=== PATIENT | female | born 1955 | race Caucasian/White ===

== ENCOUNTER → 2016-12-25 | Outpatient (CLI) | payer BC ==
[~2016-12-25] MED LIST: NO HOME MEDICATIONS
== END ==
LOC: MC.RAD 16:00
DX: Z12.31 Encounter for screening mammogram for malignant neoplasm of breast (principal)

== ENCOUNTER 2017-09-05 14:29 | Emergency (ER) | payer BC ==
[~2017-09-05] VITALS: Ht 160 cm; Wt 46.4 kg
[2017-09-05 14:35] VITALS: TEMP 100.1
[2017-09-05] MEDS ORDERED: THERAFLU EXPRE1 EAC1 PO (15:11)
[2017-09-05] MEDS ORDERED: ADVIL200 MG PO (15:11)
[2017-09-05 15:35] LABS: BASO % 0.3 % (0.0-2.0); GRAN % 77.2 % (42.2-75.2); HEMATOCRIT 39.4 % (37.0-47.0); HEMOGLOBIN 13.2 g/dl (12.5-16.0); LYMPH # 0.5 (1.2-3.4); LYMPH % 7.1 % (20.0-51.0); MEAN CELL VOLUME 95 fl (80.0-100.0); MEAN CORPUSCULAR HEMOGLOBIN 32 pg (27.0-31.0); MEAN CORPUSCULAR HGB CONC 34 g/dl (33.0-37.0); MEAN PLATELET VOLUME 10.7 fl (7.4-10.4); MONO % 14.9 % (1.7-9.3); PLATELET COUNT 177 K/mm3 (130-400); RED BLOOD COUNT 4.17 M/mm3 (4.10-5.30); REDCELL DISTRIBUTION WIDTH-CV 12.1 % (11.5-14.5)
[2017-09-05 15:45] LABS: ALBUMIN 4.4 gm/dL (3.5-5.0); BILIRUBIN,TOTAL 0.4 mg/dL (0.0-1.0); CALCIUM 8.6 mg/dL (8.4-10.2); CREATININE, serum 0.89 mg/dL (0.52-1.25); POTASSIUM 4.3 mmol/L (3.4-5.0); TOTAL PROTEIN 7.3 gm/dL (6.4-8.2)
[2017-09-05 15:51] LABS: INFLUENZA A NEGATIVE; INFLUENZA B NEGATIVE
[2017-09-05 16:26] VITALS: BP 115/69; PULSE 78
== END 2017-09-05 16:33 | disposition home or self-care (01) ==
LOC: COL.ER 14:29
PROVIDERS: Emergency Medicine
DX: J11.1 Influenza due to unidentified influenza virus with other respiratory manifestations (principal); R55 Syncope and collapse
CPT/HCPCS: J7030

== ENCOUNTER → 2018-01-20 | Outpatient (CLI) | payer BC ==
[~2018-01-20] MED LIST changes: +ADVIL200 MG PO; +THERAFLU EXPRE1 EAC1 PO
== END ==
LOC: MC.RAD 14:39
DX: Z12.31 Encounter for screening mammogram for malignant neoplasm of breast (principal)

== ENCOUNTER → 2021-09-30 | Outpatient (CLI) | payer BC | LOC: COL.RAD 08:12 | DX: J44.9 Chronic obstructive pulmonary disease, unspecified (principal); R91.8 Other nonspecific abnormal finding of lung field | CPT/HCPCS: Q9967 ==

== ENCOUNTER → 2022-05-28 | Outpatient (CLI) | payer BC | LOC: MC.RAD 11:30 | DX: Z12.31 Encounter for screening mammogram for malignant neoplasm of breast (principal) ==